=== PATIENT | female | born 1950 | race Caucasian/White ===

== ENCOUNTER 2021-10-15 06:27 | Day surgery (SDC) | payer MEDICARE, OTHER ==
[2021-10-12 12:17] LABS: BASOPHILS % (AUTO) 0.3 % (0-1); EOSINOPHILS # (AUTO) 0.1 X10'3 (0-0.9); EOSINOPHILS % (AUTO) 1.4 % (0-6); LYMPHOCYTES # (AUTO) 1.8 X10'3 (1.1-4.8); LYMPHOCYTES % (AUTO) 31.3 % (21-51); MEAN CORPUSCULAR HEMOGLOBIN 28.5 PG (27.0-31.0); MEAN CORPUSCULAR HGB CONC 32.9 g/dL (33.0-36.5); MEAN CORPUSCULAR VOLUME 86.6 FL (78-98); MEAN PLATELET VOLUME 9.3 FL (7.4-10.4); MONOCYTES # (AUTO) 0.5 X10'3 (0-0.9); MONOCYTES % (AUTO) 8.9 % (2-12); NEUTROPHILS # (AUTO) 3.3 X10'3 (1.8-7.7); NEUTROPHILS % (AUTO) 58.1 % (42-75); PRE OP HEMATOCRIT 42.1 % (35.0-45.0); PRE OP HEMOGLOBIN 13.8 g/dL (12.0-16.0); PRE OP PLATELET COUNT 194 X10'3 (140-440); RED BLOOD COUNT 4.86 X10'6 (4.20-5.60); RED CELL DISTRIBUTION WIDTH 13.2 % (11.5-14.5)
[2021-10-12 12:33] LABS: ALBUMIN 3.8 G/DL (3.4-5.0); ALKALINE PHOSPHATASE 112 IU/L (46-116); BLOOD UREA NITROGEN 13 MG/DL (7-18); BUN/CREATININE RATIO 14.6 (6.6-38.0); CALCIUM 8.6 MG/DL (8.5-10.1); CHLORIDE 102 MMOL/L (99-107); CREATININE 0.89 MG/DL (0.40-0.90); PRE OP ALT 17 U/L (30-65); PRE OP ANION GAP 8 (8-16); PRE OP AST 24 U/L (10-37); PRE OP BILIRUB, TOTAL 0.4 MG/DL (0.0-1.0); PRE OP GLUCOSE 104 MG/DL (70-104); PRE OP POTASSIUM 3.9 MMOL/L (3.4-5.1); PRE OP SODIUM 139 MMOL/L (135-145); TOTAL CARBON DIOXIDE 29.2 MMOL/L (24-32); TOTAL PROTEIN 7.6 G/DL (6.4-8.2); eGFR 63 ML/MIN
[2021-10-15] VITALS (27 sets, daily range): BP systolic 112–169; BP diastolic 57–90
[~2021-10-15] VITALS: Ht 167.6 cm; Wt 101.7 kg
[~2021-10-15 06:27] MED LIST: ESCI20TA39 PO; cefazolin/dext.iso 2gm/50ml IV ONE; famotidine 20mg tablet PO ONE; ringers solution, lacted 1,000 ML IV SCH
[2021-10-15] MEDS ORDERED: LIDOcaine 1% 30ml preserv. free vial ONE (06:53)
[2021-10-15] MEDS ORDERED: BUPIVAcaine/PF 2.5 mg/ml (0.25%) 30ml vial ONE (06:53)
[2021-10-15] MEDS ORDERED: BUPIVACAINE liposomal/PF 13.3 MG/ML vial IM ONE (06:54)
[2021-10-15] MEDS ORDERED: BUPIVAcaine/PF 2.5mg/ml (0.25%) 10ml vial ONE (06:54)
[2021-10-15] MEDS ORDERED: LIDOcaine 1% (10mg/ml) 2ml vial ONE (07:46)
[2021-10-15] MEDS ORDERED: ringers solution, lacted 1,000 ML IV SCH (08:20)
[2021-10-15] MEDS ORDERED: fentaNYL/PF 50MCG/1 ML 2ML syringe IV PRN ×3 (08:20)
[2021-10-15] MEDS ORDERED: hydrALAZINE 20mg/ml inj. IV PRN (08:20)
[2021-10-15] MEDS ORDERED: ondansetron/PF 4mg/2ml inj IV PRN (08:20)
[2021-10-15] MEDS ORDERED: labetalol 20mg/4ml (5mg/ml) syringe IV PRN (08:20)
[2021-10-15] MEDS ORDERED: midazolam 1 mg/ML 2ml injection ONE (08:24)
[2021-10-15] MEDS ORDERED: dexmedetomidin/NS 400mcg/100mL BOTTLE IV ONE (08:24)
[2021-10-15] MEDS ORDERED: sevoflurane 250ml liquid IH ONE (08:24)
[2021-10-15] MEDS ORDERED: dexamethasone sod phosphate 4mg/ml inj. ONE (08:25)
[2021-10-15] MEDS ORDERED: propofol inj 20 ML IV ONE (08:25)
[2021-10-15] MEDS ORDERED: fentaNYL /PF 50mcg/ml 5ml ampule ONE (08:25)
[2021-10-15] MEDS ORDERED: neostigmine methylsulfate 1 MG/ML 10ml vial ONE (08:26)
[2021-10-15] MEDS ORDERED: LIDOcaine 2% (20mg/ml) 5ml vial ONE (08:26)
[2021-10-15] MEDS ORDERED: rocuronium 10mg/ml inj IV ONE ×4 (08:26→10:10)
[2021-10-15] MEDS ORDERED: ondansetron/PF 4mg/2ml inj ONE (08:26)
[2021-10-15] MEDS ORDERED: glycopyrrolate 0.2mg/ml inj ONE (08:26)
[2021-10-15] MEDS ORDERED: atropine 0.4 mg/ml 20ml vial ONE (09:17)
[2021-10-15] MEDS ORDERED: sugammadex 200mg/2ml injection IV ONE (11:02)
[2021-10-15] MEDS ORDERED: oxyCODONE/APAP 5-325mg tablet PO PRN ×2 (11:45)
[2021-10-15] MEDS: morphine 4 MG/ML inj SYRINge IV PRN ×2 (12:32→13:11)
--- NOTE | 2021-10-15 13:42 | NUR ---
Received from OR via [facility] IN STABLE CONDITION , accompanied by Anesthesiologist and MACHINE WOODWORKING SANDER report given by MACHINE WOODWORKING SANDER AND Anesthesiolgist.
--- NOTE | 2021-10-15 15:51 | NUR ---
PATIENT DISCHARGED HOME IN STABLE CONDTION AFTER WRITTEN AND DISCHARGE INSTRUCTIONS GIVEN. PATIENT GAVE VERBAL UNDERSTANDING OF INSTRUCTIONS GIVEN. PATIENT LEFT FACILITY VIA WHEELCHAIR WITH RN. Addendum: 10/15/21 at 1628 by Nina Friend RN Amended: Links added.
== END 2021-10-15 15:51 | disposition home or self-care (01) ==
LOC: PAS 06:27
PROVIDERS: ATTEND Surgery
DX: K43.2 Incisional hernia without obstruction or gangrene (principal); K42.9 Umbilical hernia without obstruction or gangrene; K66.0 Peritoneal adhesions (postprocedural) (postinfection); F32.9 Major depressive disorder, single episode, unspecified; E66.01 Morbid (severe) obesity due to excess calories; Z68.36 Body mass index [BMI] 36.0-36.9, adult; Z88.5 Allergy status to narcotic agent; Z79.899 Other long term (current) drug therapy; Z20.822 Contact with and (suspected) exposure to COVID-19; Z90.710 Acquired absence of both cervix and uterus; Z98.890 Other specified postprocedural states; Z98.84 Bariatric surgery status; Z90.49 Acquired absence of other specified parts of digestive tract; Z90.5 Acquired absence of kidney; Z98.51 Tubal ligation status
CPT/HCPCS: 36415; 49652; 49654; 80053; 82948; 85025; 87635; 93005; C1758; C1781; C9290; C9803; J0461; J0690; J1100; J2250; J2270; J2405; J2704; J2710; J3010; J3490; J7030; J7120; Z7506; Z7508; Z7512; A4215; A4618

== ENCOUNTER 2025-01-08 20:05 | Emergency (ER) | payer MEDICARE, OTHER ==
[~2025-01-08] VITALS: Ht 165.1 cm; Wt 104.5 kg
[~2025-01-08 20:05] MED LIST changes: -cefazolin/dext.iso 2gm/50ml IV ONE; -famotidine 20mg tablet PO ONE; -ringers solution, lacted 1,000 ML IV SCH
[2025-01-08 21:26] LABS: BASOPHILS % (AUTO) 0.2 % (0-1); EOSINOPHILS % (AUTO) 0.1 % (0-6); HEMATOCRIT 41.1 % (35.0-45.0); HEMOGLOBIN 13.7 g/dl (12.0-16.0); LYMPHOCYTES # (AUTO) 0.9 X10'3 (1.1-4.8); LYMPHOCYTES % (AUTO) 8.6 % (21-51); MEAN CORPUSCULAR HEMOGLOBIN 27.6 PG (27.0-31.0); MEAN CORPUSCULAR HGB CONC 33.2 g/dL (33.0-36.5); MEAN CORPUSCULAR VOLUME 82.9 FL (78-98); MEAN PLATELET VOLUME 9.2 FL (7.4-10.4); MONOCYTES # (AUTO) 1.1 X10'3 (0-0.9); MONOCYTES % (AUTO) 10.6 % (2-12); NEUTROPHILS # (AUTO) 8.4 X10'3 (1.8-7.7); NEUTROPHILS % (AUTO) 80.5 % (42-75); PLATELET COUNT 189 X10'3 (140-440); RED BLOOD COUNT 4.96 X10'6 (4.20-5.60); RED CELL DISTRIBUTION WIDTH 16.6 % (11.5-14.5); WHITE BLOOD COUNT 10.5 X10'3 (4.5-11.0)
[2025-01-08 21:39] LABS: ALANINE AMINOTRANSFERASE 27 U/L (12-78); ALBUMIN 3.4 G/DL (3.4-5.0); ALBUMIN/GLOBULIN RATIO 0.8 (1.1-1.5); ALKALINE PHOSPHATASE 136 IU/L (46-116); ANION GAP 9 (8-16); ASPARTATE AMINO TRANSFERASE 29 U/L (10-37); BILIRUBIN,TOTAL 0.8 MG/DL (0.1-1.0); BLOOD UREA NITROGEN 8 MG/DL (7-18); BUN/CREATININE RATIO 9.6 (10.0-20.0); CALCIUM 8.5 MG/DL (8.5-10.1); CHLORIDE 101 MMOL/L (99-107); CREATININE 0.83 MG/DL (0.40-0.90); GLUCOSE 135 MG/DL (70-104); POTASSIUM 3.4 MMOL/L (3.5-5.1); SODIUM 136 MMOL/L (135-145); TOTAL CARBON DIOXIDE 26.5 MMOL/L (24-32); TOTAL PROTEIN 7.8 G/DL (6.4-8.2); eCRCL 54 ML/MIN; eGFR 67 ML/MIN
[2025-01-08 21:46] LABS: PRO BRAIN NATRIURETIC PEPTIDE 490 PG/ML (0-125)
[2025-01-08 22:39] LABS: BILIRUBIN,URINE NEGATIVE (Neg); CLARITY,URINE CLOUDY (Clear); COLOR,URINE YELLOW (Yellow); GLUCOSE, URINE NEGATIVE (Neg); KETONES,URINE 40 mg/dl (Neg); LEUKOCYTE ESTERASE ,URINE TRACE (Neg); NITRITES, URINE POSITIVE (Neg); OCCULT BLOOD,URINE TRACE-INTACT (Neg); PROTEIN,URINE 30 mg/dl (Neg)
[2025-01-08 22:40] LABS: UA COLLECTION TYPE CLN CATCH MIDSTREAM
[2025-01-08 22:41] LABS: BACTERIA,URINE 4+ /HPF (Neg); RBC,URINE 0-2 /HPF (0-2); SQUAMOUS EPITHELIAL CELL,UR MODERATE /LPF (FEW); TRANSITIONAL EPI CELLS,URINE FEW /HPF
[2025-01-08] MEDS: acetaminophen 1,000mg/100ml IV 100 ML IV ONE (22:46)
[2025-01-08] MEDS: normal saline 1000ml 1,000 ML IV ONE (22:47)
[2025-01-08] MEDS: CefTRIAXone 2gm/D5W 50ml BAG 50 ML IV ONE (22:52)
[2025-01-08] MEDS ORDERED: CEPH-585 PO (23:10)
[2025-01-09 00:07] VITALS: BP 120/57; PULSE 63; RESP 14; TEMP 98.3; O2SAT 95
== END 2025-01-09 00:10 | disposition home or self-care (01) ==
LOC: ER 20:05
DX: N39.0 Urinary tract infection, site not specified (principal); Z88.5 Allergy status to narcotic agent; Z20.822 Contact with and (suspected) exposure to COVID-19
CPT/HCPCS: 36415; 71046; 80053; 81001; 83605; 83735; 83880; 84145; 85025; 87040; 87088; 87502; 87503; 87811; 96365; 96375; 99284; J0131; J0696; J7030; 87077; 87186